=== PATIENT | male | born 2000 | race Caucasian/White ===

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

== ENCOUNTER → 2021-12-12 14:07 | Outpatient (CLI) | payer OTHER, SELFPAY ==
[2021-12-12 16:19] LABS: Free T4, Direct Thyroxine 1.28 ng/dL (0.78-2.19)
[2021-12-12 16:33] LABS: Thyroid Stimulating Hormone 1.17 uIU/mL (0.47-4.68)
== END ==
PROVIDERS: PCP Pediatrics; Referring Provider Nurse Practitioner Pediatrics; Visit Provider Nurse Practitioner Pediatrics
DX: E06.3 Autoimmune thyroiditis (principal)
CPT/HCPCS: 36415; 84439; 84443

== ENCOUNTER → 2022-01-25 14:40 | Outpatient (CLI) | payer OTHER, SELFPAY ==
[2022-01-25 15:40] LABS: Hematocrit 44.6 % (41-53); Hemoglobin 15.5 g/dL (13.5-17.5); Mean Corpuscular HGB Conc 34.8 % (30-36); Mean Corpuscular Hemoglobin 29.4 PG (26-34); Mean Corpuscular Volume 84.5 fL (80-100); Platelet Count 220 X10^3/uL (150-400); Red Blood Cell Count 5.28 X10^6/uL (4.5-5.9); Red Cell Distribution Width 12.6 % (11.6-14.8); White Blood Cell Count 5.5 X10^3/uL (4.5-11.0)
[2022-01-25 16:22] LABS: HEMOLYSIS < 15 (0-50); Iron 140 ug/dL (49-181)
[2022-01-25 16:23] LABS: Alanine Aminotransferase 17 IU/L (<50); Albumin Globulin Ratio 1.7 (1.0-2.8); Alkaline Phosphatase 50 U/L (38-126); Aspartate Aminotransferase 25 IU/L (17-59); BUN Creatinine Ratio 17.4 (6-22); Blood Urea Nitrogen 15 mg/dL (9-20); Carbon Dioxide 28 mmol/L (22-32); Chloride 105 mmol/L (98-107); Estimated Glomerular Filt Rate > 60.0 mL/min (>60); Glucose 151 mg/dL (70-100); HEMOLYSIS < 15 (0-50); Potassium 4.4 mmol/L (3.4-5.1); Sodium 139 mmol/L (137-145)
[2022-01-25 16:33] LABS: Percent Iron Saturation 35 % (20-50); Total Iron Binding Capacity 402 ug/dL (261-462); Transferrin 320 mg/dL (206-381)
[2022-01-25 16:40] LABS: Vitamin D 25 Hydroxy (D3) 29.9 ng/mL (30.0-100.0)
[2022-01-25 16:57] LABS: Ferritin 22 ng/mL (18-464)
== END ==
PROVIDERS: PCP Registered Nurse Diabetes Educator; Referring Provider Registered Nurse Diabetes Educator; Visit Provider Registered Nurse Diabetes Educator
DX: E06.3 Autoimmune thyroiditis (principal); E10.9 Type 1 diabetes mellitus without complications; L65.0 Telogen effluvium
CPT/HCPCS: 36415; 80053; 82306; 82728; 83540; 83550; 85027

== ENCOUNTER → 2022-11-08 15:53 | Outpatient (CLI) | payer OTHER, SELFPAY ==
[2022-11-08 17:19] LABS: Hematocrit 46.1 % (41-53); Mean Corpuscular HGB Conc 34.6 % (30-36); Mean Corpuscular Hemoglobin 29.2 PG (26-34); Mean Corpuscular Volume 84.3 fL (80-100); Platelet Count 200 X10^3/uL (150-400); Red Blood Cell Count 5.48 X10^6/uL (4.5-5.9); Red Cell Distribution Width 12.5 % (11.6-14.8); White Blood Cell Count 5.2 X10^3/uL (4.5-11.0)
[2022-11-08 17:27] LABS: Hemoglobin A1C% w Est Avg Glu 6.3 % (4.0-6.0)
[2022-11-08 18:33] LABS: HEMOLYSIS < 15 (0-50)
[2022-11-08 18:37] LABS: Iron 147 ug/dL (49-181)
[2022-11-08 18:39] LABS: Alanine Aminotransferase 18 IU/L (<50); Albumin 4.6 g/dL (3.5-5.0); Albumin Globulin Ratio 1.6 (1.0-2.8); Alkaline Phosphatase 62 U/L (38-126); Aspartate Aminotransferase 23 IU/L (17-59); BUN Creatinine Ratio 16.5 (6-22); Bilirubin Total 1.1 mg/dL (0.2-1.3); Blood Urea Nitrogen 15 mg/dL (9-20); Calcium 9.6 mg/dL (8.4-10.2); Carbon Dioxide 26 mmol/L (22-32); Chloride 102 mmol/L (98-107); Cholesterol 199 mg/dL (140-199); Estimated Glomerular Filt Rate > 60 mL/min (>60); Globulin 2.9 g/dL (1.7-4.1); Glucose 183 mg/dL (70-100); HDL Cholesterol 71 mg/dL (40-60); HEMOLYSIS < 15 (0-50); LDL Cholesterol Calculated 110 mg/dL (<100); Potassium 4.6 mmol/L (3.4-5.1); Sodium 137 mmol/L (137-145); Total Protein 7.5 g/dL (6.3-8.2); Triglycerides 89 mg/dL (35-150)
[2022-11-08 18:48] LABS: Percent Iron Saturation 40 % (20-50); Total Iron Binding Capacity 367 ug/dL (261-462); Transferrin 287 mg/dL (206-381)
[2022-11-08 19:12] LABS: TSH w/ Reflex to FT4 1.54 uIU/mL (0.47-4.68)
[2022-11-08 19:13] LABS: Ferritin 39 ng/mL (18-464)
== END ==
PROVIDERS: PCP Registered Nurse Diabetes Educator; Referring Provider Registered Nurse Diabetes Educator; Visit Provider Registered Nurse Diabetes Educator
DX: E06.3 Autoimmune thyroiditis (principal); E10.9 Type 1 diabetes mellitus without complications; L65.0 Telogen effluvium; Z78.9 Other specified health status
CPT/HCPCS: 36415; 80053; 80061; 82728; 83036; 83540; 83550; 84443; 85027

== ENCOUNTER → 2023-01-31 13:45 | Outpatient (CLI) | payer OTHER, SELFPAY ==
[2023-01-31 14:54] LABS: Free T3, Triiodothyronine Free 3.87 pg/mL (2.77-5.27)
[2023-01-31 15:06] LABS: Vitamin D 25 Hydroxy (D3) 31.4 ng/mL (30.0-100.0)
[2023-01-31 15:08] LABS: Thyroid Stimulating Hormone 3.42 uIU/mL (0.47-4.68)
[2023-02-01 21:36] LABS: Thyroid Peroxidase Antibodies 193 IU/mL (0-34)
== END ==
PROVIDERS: PCP Registered Nurse Diabetes Educator; Referring Provider Registered Nurse Diabetes Educator; Visit Provider Registered Nurse Diabetes Educator
DX: E06.3 Autoimmune thyroiditis (principal); E55.9 Vitamin D deficiency, unspecified
CPT/HCPCS: 36415; 82306; 84439; 84443; 84481; 86376

== ENCOUNTER 2023-12-25 19:24 | Emergency (ER) | payer OTHER, SELFPAY ==
[2023-12-25] VITALS (10 sets, daily range): BP systolic 110–160; BP diastolic 51–81; PULSE 73–115; RESP 14–24; TEMP 36.8; O2SAT 94–99; BMI 20.9
[2023-12-25] MEDS: ONDANSETRON 4 MG/2 ML INJ (19:29)
--- NOTE | 2023-12-25 19:31 | DI.CT.S_ITS ---
PROCEDURE: CT HEAD/BRAIN WO CON INDICATIONS: SEIZURE, AMS TECHNIQUE: Noncontrast 4.5 mm thick angled axial sections acquired from the foramen magnum to the vertex, with coronal and sagittal reformats. For radiation dose reduction, the following was used: automated exposure control, adjustment of mA and/or kV according to patient size. COMPARISON: None. FINDINGS: Image quality: Diagnostic. CSF spaces: Basal cisterns are patent. No extra-axial fluid collections. Ventricles are normal in size and shape. Brain: No midline shift. No intracranial masses or hemorrhage. Wyman-white matter interface is normal. Skull and face: Calvarium and visualized facial bones are intact, without suspicious lesions. Sinuses: Visualized sinuses and mastoids are clear. IMPRESSION: CT head without acute intracranial abnormalities. No mass or mass effect visualized. Dictated by: Estuardo Huffman M.D. on 12/25/2023 at 21:12 Approved by: Estuardo Huffman M.D. on 12/25/2023 at 21:12
--- NOTE | 2023-12-25 19:31 | DI.RAD.S_ITS ---
PROCEDURE: XR CHEST 1V INDICATIONS: SEIZURE, AMS, EMESIS WITH LOW O2 TECHNIQUE: One view of the chest was acquired. COMPARISON: None. FINDINGS: Surgical changes and devices: None. Lungs and pleura: Lungs are clear. No pleural effusions or pneumothorax. Mediastinum: Mediastinal contours appear normal. Heart size is normal. Bones and chest wall: No suspicious bony lesions. Overlying soft tissues appear unremarkable. IMPRESSION: No acute cardiopulmonary abnormalities or focal airspace disease. Dictated by: Estuardo Huffman M.D. on 12/25/2023 at 21:12 Approved by: Estuardo Huffman M.D. on 12/25/2023 at 21:13
[2023-12-25] MEDS: DEXTROSE 5%-0.9% NS 1,000 ML 100 ML IV (19:39)
--- NOTE | 2023-12-25 19:42 | ED_ITS ---
HPI - Seizure General Chief Complaint: Seizure Stated Complaint: diabetic shock Time Seen by Provider: 12/25/23 19:31 Source: family Mode of arrival: Wheelchair Limitations: altered mental status History of Present Illness HPI Narrative: 23-year-old male with history of type 1 diabetes presents by private vehicle from home for seizure-like activity as well as hypoglycemia. Patient is normally very well controlled in his blood sugars. This evening patient administered his usual amount of insulin before eating pizza for dinner. Before eating he stated that he felt weird and rechecked his sugar. His glucose was 30. He began to eat m&m and peanut butter, but shortly afterwards told his parents that he felt poorly and then had a witnessed seizure by his family. Father administered a glucagon injection and family brought him into the ER for evaluation. Patient does appear to be postictal on arrival. Accu-Chek 96. Related Data Home Medications Medication Instructions Recorded Confirmed INSULIN LISPRO (#HUMALOG (SHORT u SC DIRECTED ##0 10/19/11 12/26/22 ACTING)) insulin detemir U-100 100 unit/mL 16 unit SUBCUT QAM 01/25/22 12/26/22 subcutaneous solution insulin degludec 100 unit/mL (3 15 unit SUBCUT BID 12/06/22 12/26/22 mL) subcutaneous pen (Tresiba FlexTouch U-100 insulin) blood sugar diagnostic (OneTouch #10 ea 12/26/22 12/26/22 Verio test strips) Previous Rx's Medication Instructions Recorded levothyroxine 100 mcg tablet 100 mcg PO DAILY #90 tabs 12/06/22 Allergies Allergy/AdvReac Type Severity Reaction Status Date / Time ADHESIVE Allergy Mild RASH Uncoded 12/26/22 10:56 LATEX Allergy Mild RASH Uncoded 12/26/22 10:56 Review of Systems Review of Systems Narrative: Otherwise negative Patient History Social History Smoking Status: Never smoker Smoking Status: Never smoker alcohol intake frequency: other Exam Initial Vital Signs Initial Vital Signs: Vital Signs Pulse Rate 115 H 12/25/23 19:31 Respiratory Rate 21 12/25/23 19:31 Pulse Oximetry 94 12/25/23 19:31 Const: Somnolent, arousable to voice and light touch Eyes: PERRL, EOMI, conjunctiva normal Cardiac: Tachycardia, regular rhythm RESP: unlabored, clear bilaterally, no wheezing Skin: Warm, Dry, intact, no rashes Neuro:CN II-XII grossly intact, moves all extremities Course Orders Ordered: ED Orders 12/25/23 19:30 CBC Auto Diff [Complete Blood Count AUTO DIFF] Stat CMP [Comprehensive Metabolic Panel] Stat Ethanol (ETOH) Stat PT [Prothrombin Time INR] Stat 12/25/23 19:31 CT head/brain wo con Stat Chest [XR chest 1V] Stat EKG-12 Lead Stat 12/25/23 21:53 UA Complete [Urinalysis and Microscopic] Stat Urine Drug Screen, Rapid Stat Discontinued Medications Sodium Chloride (Normal Saline 0.9%) 1,000 mls @ 1,000 mls/hr IV BOLUS ONE Stop: 12/25/23 20:30 Dextrose/Sodium Chloride (Dextrose 5%-0.9% Ns) 1,000 mls @ 100 mls/hr IV CONT RADHA Last Infusion: 12/25/23 21:07 Dose: 0 mls/hr Documented By: Admin: 12/25/23 19:39 Dose: 100 mls/hr Documented By: SYLVIA Metoclopramide HCl (Metoclopramide 10 Mg/2 Ml Inj) 10 mg IV NOW ONE Stop: 12/25/23 19:53 Last Admin: 12/25/23 19:54 Dose: 10 mg Documented By: ERICA Vital Signs Vital signs: Vital Signs - 8 hr 12/25/23 19:31 12/25/23 19:33 12/25/23 19:45 Temperature Pulse Rate 115 H 114 H 94 H Respiratory Rate 21 17 24 Blood Pressure 160/76 H Pulse Oximetry 94 97 94 Oxygen Delivery Method Room Air Room Air 12/25/23 19:45 12/25/23 20:00 12/25/23 20:00 Temperature Pulse Rate 86 Respiratory Rate 23 Blood Pressure 130/56 L 110/51 L Pulse Oximetry 94 Oxygen Delivery Method 12/25/23 20:45 12/25/23 20:52 12/25/23 21:00 Temperature 98.2 F Pulse Rate 74 73 95 H Respiratory Rate 16 16 14 Blood Pressure 128/60 Pulse Oximetry 99 98 98 Oxygen Delivery Method Room Air Room Air 12/25/23 21:00 12/25/23 21:15 12/25/23 21:15 Temperature Pulse Rate 92 H Respiratory Rate 19 Blood Pressure 149/68 H 123/73 Pulse Oximetry 99 Oxygen Delivery Method 12/25/23 21:30 12/25/23 21:30 12/25/23 21:45 Temperature Pulse Rate 84 87 Respiratory Rate 22 20 Blood Pressure 132/78 Pulse Oximetry 98 99 Oxygen Delivery Method Room Air 12/25/23 21:45 Temperature Pulse Rate Respiratory Rate Blood Pressure 146/81 H Pulse Oximetry Oxygen Delivery Method MDM - Seizure Differential Diagnosis Differential diagnosis: Likely intractable seizure disorder, febrile convulsion and focal seizure Lab Data 12/25/23 19:30 12/25/23 19:30 Labs: Lab Results 12/25/23 12/25/23 12/25/23 Range/Units 19:30 21:53 21:53 WBC 13.8 H (4.5-11.0) X10^3/uL RBC 5.50 (4.5-5.9) X10^6/uL Hgb 16.3 (13.5-17.5) g/dL Hct 48.6 (41-53) % MCV 88.5 (80-100) fL MCH 29.7 (26-34) PG MCHC 33.6 (30-36) % RDW 13.1 (11.6-14.8) % Plt Count 290 (150-400) X10^3/uL Neut % (Auto) 31.2 L (50-75) % Lymph % (Auto) 52.5 H (25-40) % [place] % (Auto) 7.9 (3-14) % Eos % (Auto) 7.4 H (2-4) % Baso % (Auto) 1.0 (0-2) % Neut # (Auto) 4300 (1240-5497) /uL Lymph # (Auto) 7200 H (0295-3888) /uL [place] # (Auto) 1100 H (0-900) /uL Eos # (Auto) 1000 H (0-450) /uL Baso # (Auto) 100 (0-100) /uL PT 11.7 (9.4-12.5) SECONDS INR 1.0 (0.9-1.3) Sodium 146 H (137-145) mmol/L Potassium 3.3 L (3.4-5.1) mmol/L Chloride 108 H (98-107) mmol/L Carbon Dioxide 8 L* (22-32) mmol/L BUN 15 (9-20) mg/dL Creatinine 1.06 (0.66-1.25) mg/dL Estimated GFR > 60 (>60) mL/min BUN/Creatinine Ratio 14.2 (6-22) Glucose 101 H (70-100) mg/dL Calcium 10.4 H (8.4-10.2) mg/dL Total Bilirubin 1.0 (0.2-1.3) mg/dL AST 36 (17-59) IU/L ALT 49 (<50) IU/L Alkaline Phosphatase 53 (38-126) U/L Total Protein 8.8 H (6.3-8.2) g/dL Albumin 5.6 H (3.5-5.0) g/dL Globulin 3.2 (1.7-4.1) g/dL Albumin/Globulin Ratio 1.8 (1.0-2.8) Urine Color Yellow Urine Appearance Clear Urine pH 5.5 Normal (4.5-8.0) Ur Specific [place] >=1.030 H (1.000-1.035) Urine Protein 2+ H (Negative) Urine Glucose (UA) Negative (Negative) g/dL Urine Ketones Negative (NEGATIVE) Urine Occult Blood 2+ H (Negative) Urine Nitrate Negative (Negative) Urine Bilirubin Negative (NEGATIVE) Urine Urobilinogen 0.2 (0.2) E.U./dL Ur Leukocyte Esterase Negative (NEGATIVE) Urine RBC 5-10/hpf H (0-5/HPF) Urine WBC None seen (0-5/HPF) Ur Squamous Epith Cells None seen (0-5/HPF) Urine Bacteria None seen (None) Ur Culture Indicated? Cult not indicated Vol Urine Centrifuged 10ml (spun) U Opiates 300ng/mL cut Negative (Negative) Ur Oxycodone Screen Negative (Negative) Urine Methadone Screen Negative (Negative) Ur Barbiturates Screen Negative (Negative) U Tricyclic Antidepress Negative (Negative) Ur Phencyclidine Scrn Negative (Negative) Ur Amphetamines Screen Negative (Negative) U Methamphetamines Scrn Negative (Negative) Ur MDMA Scrn (Ecstasy) Negative (Negative) U Benzodiazepines Scrn Negative (Negative) Urine Cocaine Screen Negative (Negative) U Marijuana (THC) Screen Negative (Negative) Urine Specific [place] Normal (Normal) Ethyl Alcohol < 10 ( - 10) mg/dL Ur Creatinine Normal (Normal) Point of Care Testing Glucose POC 115 ECG Data Interpretation: Normal sinus rhythm, rate 80 beats per minute, normal intervals, no ST T wave changes MDM Narrative Medical decision making narrative: Seizure-like activity after hypoglycemia episode at home. Patient did arrive postictal on arrival. Family states that patient's blood glucoses are usually very well controlled at home and this is a very atypical event for the patient. Patient's blood glucose began to drop after arrival and D5 was started empirically on a precaution. Laboratory work reviewed. WBC count 13.8, sodium 146, potassium 3.3, CO2 less than 8. Patient reassessed, he is now alert, oriented, states that he feels ?sore? but otherwise back to baseline. D5 stopped. Believe that the CO2 is secondary to the seizure that the patient experienced prior to arrival. CT of the brain negative for acute findings. Chest x-ray unremarkable. Urinalysis does not show any signs of infections. Patient continues to feel well, blood glucose is controlled without requiring additional D5 or other medications. Family counseled on all lab and imaging findings. 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 ED return precautions discussed at bedside. Patient expressed understanding of the plan and is in agreement at this time. All questions answered at the time of discharge. Discharge Plan Departure Patient Disposition: Home Clinical Impression: Type 1 diabetes mellitus, Hypoglycemia Instructions: DI for Hypoglycemia Prescriptions: No Action INSULIN LISPRO (#HUMALOG (SHORT ACTING)) SC DIRECTED Qty: 0 insulin detemir U-100 100 unit/mL solution 16 unit SUBCUT QAM insulin degludec [Tresiba FlexTouch U-100] 100 unit/mL (3 mL) insulin pen 15 unit SUBCUT BID levothyroxine 100 mcg tablet 100 mcg PO DAILY Qty: 90 3RF (DME) OneTouch Verio test strips Strip See Rx Instructions .ROUTE .MEDSUPPLY Qty: 10 Rx Instructions: As directed Referrals: Jesús Cheema ARNP [Primary Care Provider] - Stand Alone Forms: Patient Portal/API
[2023-12-25 19:45] LABS: Add Manual Diff / Slide Review NO; Basophils Absolute Auto 100 /uL (0-100); Eosinophils Absolute Auto 1000 /uL (0-450); Eosinophils Percent Auto 7.4 % (2-4); Hematocrit 48.6 % (41-53); Hemoglobin 16.3 g/dL (13.5-17.5); Lymphocytes Absolute Auto 7200 /uL (1100-4500); Lymphocytes Percent Auto 52.5 % (25-40); Mean Corpuscular HGB Conc 33.6 % (30-36); Mean Corpuscular Hemoglobin 29.7 PG (26-34); Mean Corpuscular Volume 88.5 fL (80-100); Monocytes Absolute Auto 1100 /uL (0-900); Monocytes Percent Auto 7.9 % (3-14); Neutrophils Absolute Auto 4300 /uL (1500-7000); Neutrophils Percent Auto 31.2 % (50-75); Platelet Count 290 X10^3/uL (150-400); Red Cell Distribution Width 13.1 % (11.6-14.8); White Blood Cell Count 13.8 X10^3/uL (4.5-11.0)
[2023-12-25 19:50] LABS: Prothrombin Time 11.7 SECONDS (9.4-12.5)
[2023-12-25] MEDS: METOCLOPRAMIDE 10 MG/2 ML INJ IV (19:54)
[2023-12-25 19:55] LABS: Alanine Aminotransferase 49 IU/L (<50); Albumin 5.6 g/dL (3.5-5.0); Albumin Globulin Ratio 1.8 (1.0-2.8); Alkaline Phosphatase 53 U/L (38-126); Aspartate Aminotransferase 36 IU/L (17-59); BUN Creatinine Ratio 14.2 (6-22); Blood Urea Nitrogen 15 mg/dL (9-20); Calcium 10.4 mg/dL (8.4-10.2); Chloride 108 mmol/L (98-107); Estimated Glomerular Filt Rate > 60 mL/min (>60); Ethanol (ETOH) < 10 mg/dL; Globulin 3.2 g/dL (1.7-4.1); Glucose 101 mg/dL (70-100); HEMOLYSIS < 15 (0-50); Potassium 3.3 mmol/L (3.4-5.1); Sodium 146 mmol/L (137-145); Total Protein 8.8 g/dL (6.3-8.2)
[2023-12-25 20:09] LABS: Carbon Dioxide 8 mmol/L (22-32)
--- NOTE | 2023-12-25 20:34 | PC.NURSE ---
Pt was able to have a conversation with his dad that made sense to the dad approximately 20 minutes ago. Pt is asleep at this time. Mom has gone home to get pt some new clothes as he urinated on himself at some point during this event. Airway intact, equal rise and fall of chest, no signs of respiratory distress.
--- NOTE | 2023-12-25 21:02 | PC.NURSE ---
Pt spontaneously woke up. Is talking with family, AAOx4, moving all extremities.
--- NOTE | 2023-12-25 21:07 | PC.NURSE ---
Pt tolerating water PO. Gave half of PB&J sandwich. Pt mentating well.
--- NOTE | 2023-12-25 22:09 | PC.NURSE ---
Pt ambulated to bathroom well without assistance. Toleratd PO intake well, pt and family ready to go home. MD aware and writing discharge orders now.
[2023-12-25 22:18] LABS: Appearance Urine UA CLEAR; Bilirubin Urine UA NEGATIVE (NEGATIVE); Color Urine UA YELLOW; Glucose Urine UA NEGATIVE (Negative); Ketones Urine UA NEGATIVE (NEGATIVE); Leukocyte Esterase Urine UA NEGATIVE (NEGATIVE); Nitrite Urine UA NEGATIVE (Negative); Occult Blood Urine UA 2+ (Negative); Protein Urine UA 2+ (Negative); Specific Gravity Urine UA >=1.030 (1.000-1.035); Urobilinogen Urine UA 0.2 E.U./dL (0.2); pH Urine UA 5.5 (4.5-8.0)
[2023-12-25 22:25] LABS: Ur Creatinine Normal (Normal); Ur Specific Gravity Normal (Normal); Urine Amphetamines Negative (Negative); Urine Barbiturates Negative (Negative); Urine Benzodiazepines Negative (Negative); Urine Cocaine Negative (Negative); Urine MDMA Negative (Negative); Urine Methadone Negative (Negative); Urine Methamphetamines Negative (Negative); Urine Opiates Negative (Negative); Urine Oxycodone Negative (Negative); Urine Phencyclidine Negative (Negative); Urine THC Negative (Negative); Urine Tricyclic Antidepressant Negative (Negative); Urine pH Normal (Normal)
[2023-12-25 22:28] LABS: Bacteria Urine None Seen; Culture Indicated Urine Cult Not Indicated; RBC Urine 5-10/HPF (0-5/HPF); Squamous Epithelial Cell Urine None Seen (0-5/HPF); Urine Volume 10mL (spun); WBC Urine None Seen (0-5/HPF)
== END 2023-12-25 22:18 | disposition home or self-care (01) ==
PROVIDERS: Emergency Provider Emergency Medicine; PCP Registered Nurse Diabetes Educator
DX: E10.649 Type 1 diabetes mellitus with hypoglycemia without coma (principal); Z79.4 Long term (current) use of insulin; R56.9 Unspecified convulsions
CPT/HCPCS: 36415; 70450; 71045; 80053; 80305; 80320; 81001; 82962; 85025; 85610; 93005; 96361; 96374; 96375; 99284; J2405; J2765

== ENCOUNTER → 2025-06-14 15:31 | Outpatient (CLI) | payer OTHER, SELFPAY ==
--- NOTE | 2025-06-14 15:33 | DI.US.S_ITS ---
PROCEDURE: US SOFT TISSUE HEAD AND NECK INDICATIONS: Lump on back of neck TECHNIQUE: Real-time scanning was performed of the neck region of interest, with image documentation. COMPARISON: None. FINDINGS/IMPRESSION: In the area of interest in the posterior neck, there is a lesion measuring 2.9 x 0.8 x 2.4 cm with few small calcifications. No internal vascularity. Exact etiology is uncertain, consider epidermal inclusion cyst. Recommend clinical correlation and follow-up and if there is concern for growth, repeat imaging. Dictated by: Obey Borja M.D. on 06/14/2025 at 16:56 Approved by: Obey Borja M.D. on 06/14/2025 at 16:57
== END ==
LOC: US 15:33
PROVIDERS: PCP Registered Nurse Diabetes Educator; Referring Provider Nurse Practitioner Family; Visit Provider Nurse Practitioner Family
DX: R22.1 Localized swelling, mass and lump, neck (principal)
CPT/HCPCS: 76536